=== PATIENT | male | born 1995 | race African-American/Black ===

== ENCOUNTER 2016-06-27 14:33 | Observation (INO) | payer MEDICAID, SELFPAY ==
[2016-06-27] VITALS (10 sets, daily range): BP systolic 127–143; BP diastolic 74–100; PULSE 84–102; RESP 15–20; TEMP 36.6–37.5; O2SAT 95–98; BMI 41.2; BMI 39.8
[2016-06-27 14:53] LABS: Bedside Glucose > 500 mg/dL (70-110)
[2016-06-27] MEDS: 0.9% Normal Saline 1,000 ML 1000 ML IV ×2 (15:23→16:45)
[2016-06-27 15:25] LABS: Absolute Lymphocyte Count 1.25 X10^3/ul (0.83-4.51); Absolute Neutrophil Count 5.8 X10^3/uL (2.0-7.7); Basophil# 0.02 X10^3/uL; Basophil% 0.3 % (0-1); Eosinophil# 0.02 X10^3/uL; Eosinophils% 0.3 % (0-5); Hematocrit 48.7 % (40-54); Hemoglobin 14.8 g/dl (13.0-16.5); Lymphocyte # 1.25 X10^3/ul (4.0); Lymphocyte % 16.8 % (19-41); Mean Corp Hgb Conc 30.4 g/gl (32-36); Mean Corpuscular Hgb 27.8 pg (27.0-32.0); Mean Corpuscular Volume 91.5 fL (80-94); Mean Platelet Vol. 11.2 fl (6.2-12.0); Monocyte# 0.28 X10^3/uL; Monocyte% 3.8 % (0-10); Neutrophil # 5.83 X10^3/uL (2.7-7.7); Neutrophil % 78.4 % (47-70); Platelet Count 234 K/mm3 (150-450); RBC Distribution Width SD 46.4 fl (35.1-43.9); Red Blood Count 5.32 M/mm3 (4.6-6.2); White Blood Count 7.4 K/mm3 (4.4-11.0)
[2016-06-27 15:26] LABS: POSITIVE COUNT NO; POSITIVE DIFFERENTIAL NO; POSITIVE MORPHOLOGY NO
--- NOTE | 2016-06-27 15:42 | ED.RN ---
DR MIRANDA NOTIFIED OF K+ AND GLUCOSE RESULTS
[2016-06-27 15:44] LABS: Anion Gap 15 (5-15); BUN 29 mg/dL (7-18); BUN/Creat Ratio 18.2 RATIO (10-20); Calcium,Total 9.2 mg/dL (8.5-10.1); Chloride 82 mmol/L (98-107); Creatinine, Serum 1.59 mg/dL (0.70-1.30); EST Glomerular Filtration Rate 57 mL/min (>60); Est Glom Filt Rate - Afr Amer 70 mL/min (>60); Estimated Creatinine Clearance 74.61 ml/min; Glucose 1094 mg/dL (70-110); Sodium Level 118 mmol/L (136-145)
[2016-06-27 15:52] LABS: Hemoglobin A1c 15.1 % (4.2-6.3)
--- NOTE | 2016-06-27 16:11 | HP.PCM_ITS ---
History of Present Illness Date of Admission: 06/27/16 Chief Complaint: Abdominal discomfort, not feeling well The patient is a 21 year old -[place] male came into the ED complaining of not feeling well, abdominal discomfort. States that this started about 2-3 days ago, he cannot really specify what kind of abdominal discomfort he has, and what was not right with him. Just says not feeling right and slightly lightheaded. Patient reports being very thirsty, frequent urinations/polyuria. On my examining the ED, patient is sitting in bed, comfortable, does not appear to be distressed. Complains of mild abdominal discomfort, but no nausea/ vomiting/diarrhea. Denies fever/chills. No shortness of breath or coughing now. No /neuro complaints. Past medical history. Morbid obesity. Asthma. Hypertension. Keloid scarring after piercing of his ears, was removed on the right ear, planning to remove on the left. Social history. Lives with his mother, works at [employer], active. He is to smoke a few months, quit about 3 years ago. Denies use of alcohol street drugs. Family history. Mother: Diabetes mellitus, hypertension, CAD. Grandfather: CAD. Past Medical History Past Medical History (Chronic Problems): Chronic Problems Keloid (Chronic) L91.0 4 cm recurrent keloid right earlobe Late effect of certain other external causes (Chronic) T75.89xS late effect open wound bilateral earlobes Allergies No Known Allergies Allergy (Verified 08/06/13 15:15) Home Medications: Ambulatory Orders Medication Instructions Recorded Albuterol IH (Surg/Vent Pts) 2 puff INHALATION Q4H PRN PRN 03/18/16 [Proair Hfa] Lisinopril [Zestril] 20 mg PO DAILY 03/18/16 Metformin(XR) [Glucophage Xr] 1,000 mg PO BID 03/18/16 PredniSONE 60 mg PO DAILY #15 tablet 06/25/16 Smoking Status: Never smoker . - As above Review of Systems Constitutional: Denies: Anorexia, Chills, Fever, Malaise, Weakness, Weight Change, Fatigue Eyes: Denies: Vision Change HEENT: Denies: Visual Changes Cardiovascular: Reports: Light Headedness. Denies: Chest Pain, Claudication, Heaviness, Palpitations, Syncope Respiratory: Denies: Cough, Shortness of Breath, Sputum production, Wheezing Gastrointestinal: Reports: Abdominal Pain. Denies: Constipation, Diarrhea, Dyspepsia, Hematochezia, Nausea, Melena, Vomiting Genitourinary: Reports: Frequency. Denies: Dysuria, Hematuria, Hesitancy, Incontinence, Nocturia, Retention, Urgency Musculoskeletal: Denies: Hand Pain, Joint Pain, Leg Pain, Muscle pain Skin: Reports: Dryness. Denies: Jaundice, Lesions, Rash Neurological: Reports: Balance problems - Feeling unsteady. Denies: Blurred vision, Double vision, Change in Speech, Slurred speech, Confusion, Difficulty swallowing, Focal weakness, Headaches, Incoordination, Numbness, Tingling, Tremor, Seizures Psychiatric: Denies: Anxiety, Depression, Suicidal Ideations Endocrine: Denies: Change in Body Habitus Hematologic/ Lymphatic: Denies: Adenopathy, Anemia, Hx of blood clot VTE Information - Inpt Only VTE Present on Admission: No Objective: General: Patient is comfortable, not in acute distress. Awake, alert, oriented ?3. HEENT: Atraumatic, Normocephalic. Clear conjunctiva. Oral mucosa is dry. Neck: No nodules noted, no asymmetry. PERRLA. Skin: Clean, dry. No visible rashes. On the left there is approximately 5 x 5 cm keloid scar. Well-healed incision on the right. Lungs: Good air entry, somewhat diminished at bases bilaterally, no wheezing. CVS: S1-S2 present, no murmurs appreciated, regular rate, good radial pulses. Capillary refill is less than 3 Seconds. Abdomen: Soft, nontender, nondistended, bowel sounds present. No CVA tenderness. Extremities: No clubbing, No cyanosis. No visible deformities. No lower extremity edema. Psych/Mental Status: Normal Affect, Appropriate Neuro: No focal neurological findings. - Physical Exam Vital Signs Temp Pulse Resp BP Pulse Ox 36.6 C 93 16 143/89 96 06/27/16 14:34 06/27/16 14:34 06/27/16 14:34 06/27/16 14:34 06/27/16 14:34 Oxygen Delivery Method Room Air Weight: 130.3 kg Body Mass Index (BMI) 41.2 Laboratory Tests Past 24 Hrs 06/27/16 06/27/16 06/27/16 15:15 15:15 15:15 WBC 7.4 RBC 5.32 Hgb 14.8 Hct 48.7 MCV 91.5 MCH 27.8 MCHC 30.4 L RDW 14.0 RDW Differential 46.4 H Plt Count 234 MPV 11.2 Immature Gran % (Auto) 0.400 Neut % (Auto) 78.4 H Lymph % (Auto) 16.8 L Russell % (Auto) 3.8 Eos % (Auto) 0.3 Baso % (Auto) 0.3 Absolute Neuts (auto) 5.8 Absolute Lymphs (auto) 1.25 Total Counted Not Reportable Sodium 118 L* Potassium 6.0 H* Chloride 82 L Carbon Dioxide 21.0 Anion Gap 15 BUN 29 H Creatinine 1.59 H Estim Creat Clear Calc 74.61 Est GFR (MDRD) Af Amer 70 Est GFR (MDRD) Non-Af 57 L BUN/Creatinine Ratio 18.2 Glucose 1094 H* Hemoglobin A1c 15.1 H Calcium 9.2 POC Glucose 06/27/16 14:43 POC Glucose > 500 H* Assessment/Plan * HHS. Blood glucose level on arrival = 1094. Bicarb 21.0. Dehydration. Hyponatremia. Patient is comfortable, has no complaints, no signs of encephalopathy. Likely trigger for patient's HHS: He was recently started on oral steroids for asthma exacerbation. Will start on HHS treatment per protocol with insulin drip, aggressive hydration, monitoring electrolytes. * Patient reports history of diabetes mellitus type 2, reports that about 3 months ago he visited his PCP and blood work at that time was normal. She was on metformin only. Considering that today his hemoglobin A1c is 15.1, his diabetes is not controlled at all, oral hypoglycemic agents will not be sufficient upon discharge, for now we will treat HHS as above with insulin drip , upon discharge she will need sent home on insulin regimen. Considering coexisting obesity and hypertension, suspect metabolic syndrome. May benefit from follow-up with women's swim coach as outpatient. * Hyponatremia. Sodium level on arrival 118, corrected sodium level is 136. Treatment of HHS as above. * Hyperkalemia. Sample is reported to be hemolyzed. We will recheck. * Hypertension, not at goal. Will resume patient's home medications- lisinopril. Will monitor, adjust as needed. * RAMSEY. Creatinine on arrival 1.59. Baseline creatinine = 0.91. Likely prerenal, due to significant dehydration. Aggressive hydration, expect improvement. * DVT prophylaxis was Lovenox. Dragon Dictation.
[2016-06-27 16:39] LABS: Bedside Glucose > 500 mg/dL (70-110)
--- NOTE | 2016-06-27 17:46 | EDS_ITS ---
DATE OF SERVICE: 06/27/2016 CHIEF COMPLAINT: Abdominal pain and polydipsia. HISTORY OF PRESENT ILLNESS: This is a 21-year-old male, who has a history of type 2 diabetes per the mother, who presents today with abdominal pain, cotton mouth, polydipsia. The patient states that his symptoms have been ongoing for the past 3 days. The patient states that he feels that his balance is off at times during this timeframe as well. The patient describes a generalized abdominal pain. No focal areas of concern per the patient. Denies any fevers. Admits to blurry vision at times. He admits to polyuria and polydipsia. Of note, the patient tells me that he is not taking his metformin. He states that he just did not want to take it earlier and when he told his mother that, she was concerned and brought him in to the Emergency Department. Upon arrival to the Emergency Department, his blood glucose fingerstick was over 500. PAST MEDICAL HISTORY: As above. PHYSICAL EXAMINATION: VITAL SIGNS: Stable and afebrile. GENERAL: This is a well-developed male, in no acute distress. HEENT: Head is normocephalic and atraumatic. NECK: Supple without adenopathy. ENT exam reveals slightly dry mucous membranes. CARDIOVASCULAR: Regular rate and rhythm. LUNGS: Clear to auscultation. ABDOMEN: Soft, nontender, and nondistended without rebound or guarding. EXTREMITIES: Nontender without edema. SKIN: Reveals a keloid on the patient's left ear, which has been there since he was 13. NEUROLOGIC: Alert and oriented x3. Exhibits normal strength and sensation of upper and lower extremities. Physical exam otherwise unremarkable. EMERGENCY DEPARTMENT COURSE: The patient was given IV fluids as well as insulin 25 units subQ. CBC is within normal limits. BMP revealed a sodium of 118; potassium of 6, which appears to be hemolyzed; glucose of 1094; and a creatinine of 1.59. The patient's creatinine is new and not chronic. In terms of the patient's hyponatremia, given his elevated glucose levels, I believe this is likely pseudohyponatremia. His A1c is 15.1. On reevaluation at 1600, the patient is in no distress. Findings were discussed with him and the need for admission. He voiced understanding and in agreement to this. I spoke with Dr. Strunets, who will admit the patient. He recommended that we start an insulin drip on the patient at 0.05 units/kg per hour. This was discussed with the patient as well. He voiced understanding and agreement. He has remained stable here in the Emergency Department and will be admitted for further care. The patient has no anion gap and I do not believe this represents DKA. Furthermore, the patient does not fit in the NS picture. I suspect this is likely uncontrolled diabetes to the point where he will probably need to be on insulin at discharge. DIAGNOSIS: Hyperglycemia. MD Renea Archuleta C: Carlos Castro MD T: NTS JOB: [id number]
[2016-06-27 17:47] LABS: Anion Gap 14 (5-15); BUN 28 mg/dL (7-18); BUN/Creat Ratio 21.2 RATIO (10-20); Chloride 94 mmol/L (98-107); Creatinine, Serum 1.32 mg/dL (0.70-1.30); EST Glomerular Filtration Rate 71 mL/min (>60); Est Glom Filt Rate - Afr Amer 86 mL/min (>60); Estimated Creatinine Clearance 89.87 ml/min; Potassium 4.9 mmol/L (3.5-5.1); Sodium Level 127 mmol/L (136-145)
--- NOTE | 2016-06-27 17:47 | EKG12_ITS ---
Test Reason : ADMISSION Blood Pressure : / mmHG Vent. Rate : 105 BPM Atrial Rate : 105 BPM P-R Int : 136 ms QRS Dur : 106 ms QT Int : 336 ms P-R-T Axes : 052 038 -53 degrees QTc Int : [address] \T\ T wave abnormality, consider lateral ischemia Abnormal ECG No previous ECGs available Confirmed by STEFF SOARES, KRIS ([id number]), photo editor AALIYAH LUNDY ([id number]) on 06/29/2016 3:43:03 PM Referred By: RICCI Confirmed By:KRIS ARTIS MD
[2016-06-27 17:52] LABS: Glucose 708 mg/dL (70-110)
[2016-06-27] MEDS: 0.9% Normal Saline 1,000 ML 250 ML IV ×2 (18:38→22:41)
[2016-06-27 19:22] LABS: Bedside Glucose 380 mg/dL (70-110)
[2016-06-27 20:15] LABS: Bedside Glucose 357 mg/dL (70-110)
[2016-06-27] MEDS: Albuterol 2.5 MG/3 ML VIAL.NEB. INHALATION (21:00)
[2016-06-27 21:16] LABS: Bedside Glucose 340 mg/dL (70-110)
[2016-06-27 21:37] LABS: Anion Gap 9 (5-15); BUN 24 mg/dL (7-18); BUN/Creat Ratio 20.5 RATIO (10-20); Calcium,Total 9.3 mg/dL (8.5-10.1); Chloride 102 mmol/L (98-107); Creatinine, Serum 1.17 mg/dL (0.70-1.30); EST Glomerular Filtration Rate 82 mL/min (>60); Est Glom Filt Rate - Afr Amer 99 mL/min (>60); Estimated Creatinine Clearance 104.58 ml/min; Glucose 345 mg/dL (70-110); Sodium Level 135 mmol/L (136-145)
[2016-06-27 23:23] LABS: Bedside Glucose 290 mg/dL (70-110)
[2016-06-28] VITALS (12 sets, daily range): BP systolic 133–168; BP diastolic 62–106; PULSE 73–92; RESP 14–20; TEMP 36.8–37.2; O2SAT 92–99
[2016-06-28] MEDS: Dext 5%-0.45% NS 1,000 ML 150 ML IV (00:15)
[2016-06-28 00:28] LABS: Bedside Glucose 289 mg/dL (70-110)
[2016-06-28 02:41] LABS: Bedside Glucose 322 mg/dL (70-110)
[2016-06-28 05:31] LABS: Bedside Glucose 299 mg/dL (70-110)
[2016-06-28 05:31] LABS: Bedside Glucose 312 mg/dL (70-110)
[2016-06-28 05:31] LABS: Bedside Glucose 303 mg/dL (70-110)
[2016-06-28 06:00] LABS: Anion Gap 11 (5-15); BUN 19 mg/dL (7-18); BUN/Creat Ratio 17.1 RATIO (10-20); Calcium,Total 9.1 mg/dL (8.5-10.1); Chloride 100 mmol/L (98-107); Creatinine, Serum 1.11 mg/dL (0.70-1.30); EST Glomerular Filtration Rate 87 mL/min (>60); Est Glom Filt Rate - Afr Amer 105 mL/min (>60); Estimated Creatinine Clearance 110.24 ml/min; Glucose 325 mg/dL (70-110); Magnesium 2.1 mg/dL (1.8-2.4); Potassium 3.5 mmol/L (3.5-5.1); Sodium Level 138 mmol/L (136-145)
[2016-06-28 06:16] LABS: Bedside Glucose 305 mg/dL (70-110)
[2016-06-28 06:39] LABS: Hematocrit 42.4 % (40-54); Hemoglobin 13.6 g/dl (13.0-16.5); Mean Corp Hgb Conc 32.1 g/gl (32-36); Mean Corpuscular Hgb 27.4 pg (27.0-32.0); Mean Corpuscular Volume 85.5 fL (80-94); Mean Platelet Vol. 10.6 fl (6.2-12.0); Platelet Count 222 K/mm3 (150-450); RBC Distribution Width CV 13.5 % (11.6-14.6); RBC Distribution Width SD 41.5 fl (35.1-43.9); Red Blood Count 4.96 M/mm3 (4.6-6.2); White Blood Count 7.5 K/mm3 (4.4-11.0)
[2016-06-28 06:49] LABS: Scan Indicated on CBC? Y/N NO
[2016-06-28 07:37] LABS: Bedside Glucose 328 mg/dL (70-110)
[2016-06-28 08:23] LABS: Bedside Glucose 277 mg/dL (70-110)
[2016-06-28 09:07] LABS: Bedside Glucose 228 mg/dL (70-110)
[2016-06-28] MEDS: Enoxaparin 40 MG/0.4 ML Syringe SC (10:25)
[2016-06-28 10:27] LABS: Bedside Glucose 264 mg/dL (70-110)
[2016-06-28] MEDS: Ondansetron 8 MG Tablet PO (10:27)
--- NOTE | 2016-06-28 13:20 | PCM.DC ---
Discharge Diet: 2200 Calorie Control Diet Discharge Activity: Return to Normal Activity Weight Bearing Status: Full weight bearing Allergies/Adverse Reactions: Allergies No Known Allergies Allergy (Verified 06/27/16 18:02) Medications to take at Discharge Albuterol IH (Surg/Vent Pts) [Proair Hfa] 2 puff INHALATION Q4H PRN PRN 03/18/16 Lisinopril [Zestril] 20 mg PO DAILY 03/18/16 Metformin(XR) [Glucophage Xr] 1,000 mg PO BID 03/18/16 Budesonide/Formoterol 160/4.5 [Symbicort 160/4.5 Mcg Inhaler (SP)] 2 puff INHALATION BID #1 inhaler 06/28/16 Insulin Detemir [Levemir FlexPen] 30 units SC DAILY #5 insuln.pen 06/28/16 The following prescriptions were given: Insulin Detemir [Levemir FlexPen] 30 units SC DAILY #5 insuln.pen Budesonide/Formoterol 160/4.5 [Symbicort 160/4.5 Mcg Inhaler (SP)] 2 puff INHALATION BID #1 inhaler Primary Care Physician: Carlos Castro MD [Primary Care Provider] - Please follow up with your Primary Care Physician in: in one week
[2016-06-28] MEDS: Albuterol 2.5 MG/3 ML VIAL.NEB. INHALATION (14:31)
--- NOTE | 2016-07-18 15:38 | PCM.DC.SUM ---
Discharge Date and Diagnosis Date of Admission: 06/27/16 Date of Discharge: 06/28/16 - Primary Discharge Diagnosis #1 hyperosmolar nonketotic hyperglycemia #2 type 2 diabetes-under poor control #3 hyponatremia #4 hyperkalemia #5 hypertension #6 noncompliance with medical regimen - Secondary Discharge Diagnosis Chronic Problems Keloid (Chronic) L91.0 4 cm recurrent keloid right earlobe Late effect of certain other external causes (Chronic) T75.89xS late effect open wound bilateral earlobes Hospital Course and Treatment Operations: None Procedures: None Summary of Care Provided: The patient is a 21 year old M seen in the emergency room at [facility] with a feeling of malaise, patient has type 2 diabetes and is currently taking metformin but there is question whether he is compliant with physicians visits. Lab performed in the emergency room revealed a low sodium at 118, potassium was 6, glucose was 1094. Patient's hemoglobin A1c was 15.1 indicating poor control of his type 2 diabetes. Patient BUN was elevated at 29 and creatinine was 1.59. Patient's anion gap however was 15 indicating a hyperosmolar nonketotic hyperglycemia. Patient was admitted to ICU, placed on insulin drip and given IV fluids, electrolytes were monitored and patient had no complications during his admission. On 06/28/16, patient was seen and examined by myself and felt to be in stable condition for discharge home., Discharge Diet: 2200 Calorie Control Diet Discharge Activity: Return to Normal Activity Weight Bearing Status: Full weight bearing Home Medications: Medications to take at Discharge Albuterol IH (Surg/Vent Pts) [Proair Hfa] 2 puff INHALATION Q4H PRN PRN 03/18/16 Lisinopril [Zestril] 20 mg PO DAILY 03/18/16 Metformin(XR) [Glucophage Xr] 1,000 mg PO BID 03/18/16 Budesonide/Formoterol 160/4.5 [Symbicort 160/4.5 Mcg Inhaler (SP)] 2 puff INHALATION BID #1 inhaler 06/28/16 Insulin Detemir [Levemir FlexPen] 30 units SC DAILY #5 insuln.pen 06/28/16 Following Prescrptions Were Given to Patient: Insulin Detemir [Levemir FlexPen] 30 units SC DAILY #5 insuln.pen Budesonide/Formoterol 160/4.5 [Symbicort 160/4.5 Mcg Inhaler (SP)] 2 puff INHALATION BID #1 inhaler Primary Care Physician: Carlos Castro MD [Primary Care Provider] - Please follow up with your Primary Care Physician in: in one week Disposition: Home Minutes spent on discharge:: 25 Patient Condition:: Stable Meaningful Use Info Meaningful Use Diagnoses (Choose all that apply): None applicable
== END 2016-06-28 14:51 | disposition home or self-care (01) | DRG 420 ==
LOC: ED 08-11 12:20 → ICU 08-11 12:20
PROVIDERS: Admitting Provider Internal Medicine; Emergency Provider Student in an Organized Health Care Education/Training Program; Family Provider Family Medicine; PCP Family Medicine; Visit Provider Internal Medicine
DX: E11.00 Type 2 diabetes mellitus with hyperosmolarity without nonketotic hyperglycemic-hyperosmolar coma (NKHHC) (principal); E87.1 Hypo-osmolality and hyponatremia; N17.9 Acute kidney failure, unspecified; E66.01 Morbid (severe) obesity due to excess calories; E11.65 Type 2 diabetes mellitus with hyperglycemia; I10 Essential (primary) hypertension; E87.5 Hyperkalemia; L91.0 Hypertrophic scar; S01.33 Puncture wound without foreign body of ear; X58.XXXS Exposure to other specified factors, sequela; J06.9 Acute upper respiratory infection, unspecified; J45.901 Unspecified asthma with (acute) exacerbation; Z68.41 Body mass index [BMI] 40.0-44.9, adult; Z83.3 Family history of diabetes mellitus; Z91.19 Patient's noncompliance with other medical treatment and regimen; Z79.84 Long term (current) use of oral hypoglycemic drugs; Z87.891 Personal history of nicotine dependence; Z79.899 Other long term (current) drug therapy
CPT/HCPCS: 71020; 80048; 82962; 83036; 83735; 85025; 85027; 93005; 94640; 97802; 97803; 99218; 99283; 99285; J7030; A4216; G0378; J7799

== ENCOUNTER → 2017-10-03 11:07 | Outpatient (CLI) | payer OTHER, SELFPAY ==
[2017-10-03 12:34] LABS: Microalbumin,Random Urine 29.2 mg/L (NO RANGE EST.); Microalbumin:Creatinine Ratio 79.1 mg/g CRE (<30 mg/g CRE)
[2017-10-03 12:56] LABS: Hemoglobin A1c 13.7 % (4.2-6.3)
[2017-10-03 13:23] LABS: AST(SGOT) 22 U/L (15-37); Alanine Aminotransfer ALT/SGPT 41 U/L (16-61); Albumin, Serum 3.6 g/dL (3.2-5.0); Alkaline Phosphatase 98 U/L (45-117); Anion Gap 12 (5-15); BUN 16 mg/dL (7-18); BUN/Creat Ratio 18.2 RATIO (10-20); Bilirubin, Direct 0.12 mg/dL (0.00-0.30); Calcium,Total 9.1 mg/dL (8.5-10.1); Chloride 100 mmol/L (98-107); Cholesterol 200 mg/dL (200); Creatinine, Serum 0.88 mg/dL (0.70-1.30); EST Glomerular Filtration Rate 113 mL/min (>60); Est Glom Filt Rate - Afr Amer 137 mL/min (>60); Globulin 4.1 g/dL (2.2-4.2); Glucose 348 mg/dL (74-106); High Density Lipoprotein 24 mg/dL; Potassium 4.1 mmol/L (3.5-5.1); Protein, Total 7.7 g/dL (6.4-8.2); Sodium Level 137 mmol/L (136-145); Triglycerides 989 mg/dL
== END ==
PROVIDERS: Family Provider Family Medicine; PCP Family Medicine; Visit Provider Family Medicine
DX: E11.9 Type 2 diabetes mellitus without complications (principal)
CPT/HCPCS: 36415; 80048; 80061; 80076; 82043; 82570; 83036

== ENCOUNTER → 2020-07-25 08:16 | Outpatient (CLI) | payer MEDICAID, SELFPAY ==
[2016-06-27 17:53] VITALS: BMI 39.8
[2020-07-25 10:47] LABS: Microalbumin,Random Urine 29.8 mg/L (NO RANGE EST.); Microalbumin:Creatinine Ratio 37.9 mg/g CRE (<30 mg/g CRE)
[2020-07-25 11:13] LABS: AST(SGOT) 11 U/L (15-37); Alanine Aminotransfer ALT/SGPT 30 U/L (16-61); Albumin, Serum 4.1 g/dL (3.2-5.0); Alkaline Phosphatase 73 U/L (45-117); Anion Gap 4 (5-15); BUN 18 mg/dL (7-18); BUN/Creat Ratio 21.1 RATIO (10-20); Bilirubin, Direct 0.14 mg/dL (0.00-0.30); Chloride 101 mmol/L (98-107); Cholesterol 243 mg/dL (200); Creatinine, Serum 0.85 mg/dL (0.70-1.30); EST Glomerular Filtration Rate 114 mL/min (>60); Est Glom Filt Rate - Afr Amer 138 mL/min (>60); Globulin 4.2 g/dL (2.2-4.2); Glucose 240 mg/dL (74-106); High Density Lipoprotein 39 mg/dL; Potassium 4.3 mmol/L (3.5-5.1); Protein, Total 8.3 g/dL (6.4-8.2); Sodium Level 135 mmol/L (136-145); Triglycerides 511 mg/dL
== END ==
PROVIDERS: PCP Family Medicine; Referring Provider Family Medicine; Visit Provider Family Medicine
DX: E11.9 Type 2 diabetes mellitus without complications (principal)
CPT/HCPCS: 36415; 80048; 80061; 80076; 82043; 82570

== ENCOUNTER → 2020-12-02 | Outpatient (CLI) | payer MEDICAID, SELFPAY | END | disposition home or self-care (01) | LOC: LABSPEC 12:19 | PROVIDERS: PCP Family Medicine; Referring Provider Physician Assistant Surgical; Visit Provider Physician Assistant Surgical | DX: Z20.822 Contact with and (suspected) exposure to COVID-19 (principal) | CPT/HCPCS: 87635; U0005; U0003 ==

== ENCOUNTER → 2021-07-31 | Outpatient (CLI) | payer MEDICAID, SELFPAY ==
[2021-07-31 15:29] LABS: Anion Gap 5 (5-15); BUN 24 mg/dL (7-18); BUN/Creat Ratio 24.7 RATIO (10-20); Calcium,Total 9.6 mg/dL (8.5-10.1); Chloride 106 mmol/L (98-107); Cholesterol 156 mg/dL (200); Creatinine, Serum 0.97 mg/dL (0.70-1.30); EST Glomerular Filtration Rate 97 mL/min (>60); Est Glom Filt Rate - Afr Amer 118 mL/min (>60); Glucose 140 mg/dL (74-106); High Density Lipoprotein 39 mg/dL; Potassium 4.4 mmol/L (3.5-5.1); Sodium Level 138 mmol/L (136-145); Triglycerides 118 mg/dL; Very Low Density Lipoprotein 24 mg/dL (5-40)
== END | disposition home or self-care (01) ==
PROVIDERS: PCP Family Medicine; Referring Provider Family Medicine; Visit Provider Family Medicine
DX: E11.8 Type 2 diabetes mellitus with unspecified complications (principal)
CPT/HCPCS: 36415; 80048; 80061

== ENCOUNTER → 2021-12-02 | Outpatient (CLI) | payer MEDICAID, SELFPAY ==
--- NOTE | 2021-12-02 11:23 | RAD_ITS ---
STUDY: X-RAY - LEFT SHOULDER REASON FOR EXAM: Male, 26 years old. PAIN TECHNIQUE: 3 view(s) of the shoulder. COMPARISON: None. FINDINGS: Normal glenohumeral articulation. Normal acromioclavicular joint. Normal acromion. Normal humeral head and visualized proximal humerus. The soft tissue structures are unremarkable. Normal visualized pulmonary apex. RAD/Shoulder min 2 Views IMPRESSION: Normal x-ray examination of the shoulder. Electronically Signed: Ovi Conte MD at 16:35 EDT ,
[2021-12-02 15:42] LABS: Anion Gap 6 (5-15); BUN 18 mg/dL (7-18); BUN/Creat Ratio 20.7 RATIO (10-20); Calcium,Total 9.6 mg/dL (8.5-10.1); Chloride 106 mmol/L (98-107); Cholesterol 159 mg/dL (200); Creatinine, Serum 0.87 mg/dL (0.70-1.30); EST Glomerular Filtration Rate 110 mL/min (>60); Est Glom Filt Rate - Afr Amer 133 mL/min (>60); Glucose 125 mg/dL (74-106); High Density Lipoprotein 42 mg/dL; Potassium 4.7 mmol/L (3.5-5.1); Sodium Level 138 mmol/L (136-145); Triglycerides 146 mg/dL; Very Low Density Lipoprotein 29 mg/dL (5-40)
== END | disposition home or self-care (01) ==
PROVIDERS: PCP Family Medicine; Referring Provider Family Medicine; Visit Provider Family Medicine
DX: M25.512 Pain in left shoulder (principal); E11.9 Type 2 diabetes mellitus without complications
CPT/HCPCS: 36415; 73030; 80048; 80061

== ENCOUNTER → 2021-12-22 | Outpatient (CLI) | payer MEDICAID, SELFPAY ==
--- NOTE | 2021-12-22 08:48 | ECHOD_ITS ---
Reason For Study: MURMUR Procedure This was a 2D Doppler, Color Flow transthoracic echocardiogram. The study was technically difficult. Exam performed in department. Left Ventricle Moderately dilated left ventricle. Moderately severe global left ventricular systolic dysfunction. The estimated ejection fraction is 30 %. The global longitudinal strain = -12.4% (abnormal). No evidence for diastolic dysfunction. Right Ventricle Normal RV size. Normal systolic function. Atria The left atrium is mildly enlarged. Normal right atrium. Hypermobile atrial septum. Bubble contrast study negative for right to left interatrial shunt. Mitral Valve There is no mitral annular calcification. Normal mitral valve. Trivial mitral valve insufficiency. Tricuspid Valve Normal tricuspid valve. Trivial tricuspid valve insufficiency. Unable to estimate RV systolic pressure due to insufficient tricuspid regurgitant envelope. Aortic Valve Trisinus/trileaflet aortic valve. Normal aortic valve. Pulmonic Valve The pulmonic valve is not well visualized. Great Vessels Normal sized aortic root. Pericardium/Pleural No pericardial effusion. Medication Performed a rapid injection of agitated mix of 9 cc saline and 1cc air to assess for atrial septal defect. MMode/2D Measurements & Calculations LVIDd: 6.7 cm IVSd: 0.96 cm Ao root diam: 3.5 cm LVIDs: 5.4 cm LVPWd: 1.0 cm FS: 20.7 % LAV(MOD-sp4): 60.4 ml LVAd ap4: 44.6 cm2 SV(MOD-sp4): 52.7 ml LVLd ap4: 8.2 cm EDV(MOD-sp4): 201.1 ml EDV(sp4-el): 205.7 ml LVAs ap4: 35.9 cm2 LVLs ap4: 7.5 cm ESV(MOD-sp4): 148.4 ml ESV(sp4-el): 146.3 ml EF(MOD-sp4): 26.2 % EF(sp4-el): 28.9 % SV(sp4-el): 59.4 ml LA A4 area: 21.9 cm2 LA dimension(2D): 4.0 cm RA A4 area: 18.8 cm2 Time Measurements MV dec time: 0.14 sec Doppler Measurements & Calculations MV E max leonidas: 79.3 cm/sec Lat Peak E' Leonidas: 7.3 cm/sec Med Peak E' Leonidas: 9.4 cm/sec MV A max leonidas: 56.5 cm/sec E/E' lat: 10.9 E/E' med: 8.4 MV E/A: 1.4 MV V2 max: 97.7 cm/sec MV dec slope: 642.9 cm/sec2 Ao V2 max: 109.9 cm/sec MV max P.8 mmHg Ao max P.8 mmHg MV V2 mean: 49.0 cm/sec Ao V2 mean: 71.8 cm/sec MV mean P.2 mmHg Ao mean P.5 mmHg MV V2 VTI: 20.2 cm Ao V2 VTI: 23.2 cm LV V1 max: 110.7 cm/sec PA V2 max: 118.2 cm/sec LV V1 max P.9 mmHg PA V2 mean: 74.7 cm/sec LV V1 mean P.7 mmHg LV V1 mean: 77.1 cm/sec LV V1 VTI: 22.0 cm ECHO/Echo Complete Interpretation Summary The study was technically difficult. Moderately dilated left ventricle. Moderately severe global left ventricular systolic dysfunction. The estimated ejection fraction is 30 %. The global longitudinal strain = -12.4% (abnormal). The left atrium is mildly enlarged. Hypermobile atrial septum. Trivial mitral valve insufficiency. Trivial tricuspid valve insufficiency. Unable to estimate RV systolic pressure due to insufficient tricuspid regurgita nt envelope. No evidence for diastolic dysfunction. Bubble contrast study negative for right to left interatrial shunt. Ordering Physician: Carlos Castro Referring Physician: Carlos Castro Performed By: Mona Guillen RCS
== END | disposition home or self-care (01) ==
LOC: CVS 08:46
PROVIDERS: PCP Family Medicine; Referring Provider Family Medicine; Visit Provider Family Medicine
DX: R01.1 Cardiac murmur, unspecified (principal)
CPT/HCPCS: 93306; A4216

== ENCOUNTER → 2022-01-01 | Outpatient (CLI) | payer MEDICAID, SELFPAY ==
--- NOTE | 2022-01-01 17:06 | RAD_ITS ---
STUDY: X-RAY CHEST REASON FOR EXAM: Male, 26 years old. CHEST PAIN cardiomyopathy TECHNIQUE: XR Chest 2 Views COMPARISON: 06/25/2016 FINDINGS: There is no demonstrated pleural abnormality. Normal size heart. Normal mediastinum and jeremy. Normal visualized pulmonary arteries. Normal visualized aortic arch and descending thoracic aorta. Normal visualized thoracic spine. Normal visualized ribs, clavicles, and shoulders. There is no demonstrated abnormality of the visualized soft tissue structures of the upper abdomen. RAD/Chest PA and Lateral IMPRESSION: There are no acute findings. Electronically Signed: Paul Bradshaw MD at 17:23 EDT ,
[2022-01-01 17:31] LABS: Absolute Neutrophil Count 4.9 X10^3/uL (2.0-7.7); Basophil# 0.03 X10^3/uL; Basophil% 0.4 % (0-1); Eosinophil# 0.22 X10^3/uL; Eosinophils% 2.7 % (0-5); Hematocrit 47.3 % (40-54); Hemoglobin 15.4 g/dL (13.0-16.5); Lymphocyte % 25.7 % (19-41); Mean Corp Hgb Conc 32.6 g/dL (32-36); Mean Corpuscular Hgb 28.2 pg (27.0-32.0); Mean Corpuscular Volume 86.5 fL (80-94); Mean Platelet Vol. 9.7 fl (6.2-12.0); Monocyte# 0.88 X10^3/uL; Monocyte% 10.8 % (0-10); NRBC Flagged by Analyzer 0 % (0-5); Neutrophil # 4.92 X10^3/uL (2.7-7.7); Neutrophil % 60.2 % (47-70); Platelet Count 231 K/mm3 (150-450); RBC Distribution Width CV 13.1 % (11.6-14.6); Red Blood Count 5.47 M/mm3 (4.6-6.2); White Blood Count 8.2 K/mm3 (4.4-11.0)
[2022-01-01 17:41] LABS: International Normalized Ratio 1.1; Prothrombin Time (Protime)PT. 13.8 SECONDS (11.7-14.9)
[2022-01-01 17:42] LABS: Partial Thromboplast Time 31.6 Seconds (24.1-36.2)
[2022-01-01 18:03] LABS: Anion Gap 6 (5-15); BUN 21 mg/dL (7-18); BUN/Creat Ratio 23.3 RATIO (10-20); Calcium,Total 9.6 mg/dL (8.5-10.1); Chloride 104 mmol/L (98-107); EST Glomerular Filtration Rate 106 mL/min (>60); Est Glom Filt Rate - Afr Amer 128 mL/min (>60); Glucose 100 mg/dL (74-106); Potassium 4.3 mmol/L (3.5-5.1); Sodium Level 136 mmol/L (136-145)
== END | disposition home or self-care (01) ==
PROVIDERS: PCP Family Medicine; Referring Provider Internal Medicine Cardiovascular Disease; Visit Provider Internal Medicine Cardiovascular Disease
DX: I42.9 Cardiomyopathy, unspecified (principal); E11.9 Type 2 diabetes mellitus without complications; I10 Essential (primary) hypertension; R01.1 Cardiac murmur, unspecified; R07.9 Chest pain, unspecified
CPT/HCPCS: 36415; 71046; 80048; 85025; 85610; 85730

== ENCOUNTER 2022-01-19 07:10 | Day surgery (SDC) | payer MEDICAID, SELFPAY ==
--- NOTE | 2022-01-18 10:20 | HP.PCM_ITS ---
History and Physical Date of Admission: 01/19/22 [facility] [address] [place] [address] Name:CARLEY HORN : 1995 Provider: Dr. Carlos Turner MD Age/Sex:? 26/M HPI HPI History of Present Illness Surgical H&P: Yes Details: This is a 26-year-old -[place] male who presents for outpatient cardiovascular consultation secondary to concerns of a cardiac murmur and an abnormal transthoracic echocardiogram compatible with an underlying cardiomyopathy.? The patient states to the best of his knowledge she has no cardiovascular history.? He states he was undergoing evaluation by his PCP and was thought to have a cardiac murmur.? He was referred for further evaluation with a transthoracic echocardiogram. He did have a transthoracic cardiogram on 12-22-2021.? The results are noted below.? In brief it appears that he had a moderately dilated left ventricle with moderate to severe global left ventricular systolic dysfunction with an estimated LVEF of 30% with mild left atrial enlargement and trivial MR/TR.? He had a bubble contrast study which was considered negative for right to left interatrial shunt.? There was no evidence of decreased diastolic compliance. He states he does have a history of hyperlipidemia, hypertension, diabetes mellitus.? He notes that for a long period of time as he was without third-constitution party pair health insurance he was unable to afford medications to control his medical conditions.? He states as he has been back on medications his other medical conditions have come under better control. He denies at the present time any ongoing evidence of classic angina pectoris at rest or with exertion.? He does not complain of shortness of breath or dyspnea with exertion.? He denies any obvious symptoms of acute CHF such as orthopnea or PND or peripheral pitting edema.? There has been no near-syncope or syncope. He did have an ECG performed at [facility] on 06-27-2016.? At that time he had sinus tachycardia with ST and T wave changes reported compatible with lateral myocardial ischemia. He had a repeat ECG in the office today.? He was noted to be in sinus rhythm with a nonspecific T wave abnormality. Intake Vital Signs ? 12/02/2110:12 01/01/2215:26 01/01/2215:28 Height 5 ft 10 in 5 ft 10 in 5 ft 8 in Weight: ? ? 304 lb 5 oz BMI ? ? 46.3 BP ? ? 132/88 H Blood Pressure Location ? ? Lt brachial Position ? ? Sitting Respiration ? ? 16 Pulse ? ? 76 Pulse Source ? ? 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 Accompanied by: Self Allergies No Known Allergies Allergy (Verified 01/01/22 15:29) Medications albuterol sulfate 90 mcg/actuation aerosol inhaler (ProAir HFA) 2 puff inhalation Q4H PRN PRN Asthma 03/18/16 [History Confirmed 01/01/22] metformin 500 mg tablet,extended release 24 hr 1,000 mg PO BID DIABETES 03/18/16 [History Confirmed 01/01/22] budesonide-formoterol HFA 160 mcg-4.5 mcg/actuation aerosol inhaler (Symbicort) 2 puff inhalation BID ##1 06/28/16 [Rx Confirmed 01/01/22] albuterol sulfate 2.5 mg/3 mL (0.083 %) solution for nebulization 2.5 mg inhalation DAILY PRN 12/29/21 [History Confirmed 01/01/22] empagliflozin 25 mg tablet (Jardiance) 25 mg PO DAILY 12/29/21 [History Confirmed 01/01/22] insulin glargine 100 unit/mL (3 mL) subcutaneous pen (Basaglar KwikPen U-100 Insulin) 40 unit subcut QAM 12/29/21 [History Confirmed 01/01/22] lisinopril 5 mg tablet 5 mg PO DAILY 12/29/21 [History Confirmed 01/01/22] rosuvastatin 5 mg tablet 5 mg PO DAILY 12/29/21 [History Confirmed 01/01/22] aspirin 81 mg tablet,delayed release 81 mg PO DAILY #1 TAB 01/01/22 [Rx Confirmed 01/01/22] carvedilol 3.125 mg tablet (Coreg) 3.125 mg PO BID #60 tabs 01/01/22 [Rx Confirmed 01/01/22] PFSH Medical History? Cardiac murmur Essential hypertension Exposure to confirmed case of COVID-19 [place] Late effect of certain other external causes Type 2 diabetes mellitus Surgical History? History of knee surgery Family History? Grandfather CAD (coronary artery disease)Mother Heart disease Social History? Smoking Status:? Former smoker alcohol intake:? current details:? occasional substance use type:? does not use caffeine:? Yes Type: coffee Number of servings: 1 ROS Const Const: Negative for fatigue, weakness, body ache, fever(s), headache(s), chills, frequent falls, night sweats, daytime sleepiness, difficulty sleeping, excessive sweating, weight gain, weight loss, increased appetite, poor appetite, anorexia or other Eyes Eyes: Negative for blurry vision or double vision ENT ENT: Negative for headache(s), dizziness or balance problems Cardio Chest Pain: No Palpitations: No Edema: None Muscle aches with walking: None Resp Respiratory: Negative for SOB with activity, SOB at rest, SOB orthopnea\SOB lying down, Cough, Coughing up blood/hemoptysis, chest congestion, pain on inspiration, snoring, stridor, wheezing, crackles, paroxysmal nocturnal dyspnea or other Musc Musc: Negative for muscle aches/ myalgia, muscle weakness, joint pain or balance problems Neuro Neuro: Negative for dizziness, lightheadedness, near syncope, syncope, orthostatic symptoms, frequent falls, headache(s), weakness, confusion, memory loss, restless legs, blurry vision, double vision, vertigo, seizures, lack of coordination or other Endo Endo: Negative for fatigue or excessive sweating Cardiology Exam Const Appearance: cooperative, healthy appearing, comfortable, no acute distress, well developed and well groomed Nutritional Appearance: average body habitus and well nourished Orientation: alert, awake and oriented x3 Head Head: normal to inspection, normocephalic and atraumatic Ears: hearing grossly normal bilaterally Nose: external nose normal Face and Sinus: face symmetric Eyes Eyelids: eyelids normal Conjunctivae: conjunctivae normal Pupils: PERRL EOM: EOM intact bilaterally Neck Neck: normal visual inspection and full ROM Carotids: normal carotid upstroke Chest Chest inspection: normal inspection of the chest, symmetric chest movement and normal respiratory effort Auscultation: Bilateral: Clear to Auscultation Cardio Palpation: normal PMI Rate: regular rate Rhythm: regular rhythm Heart sounds: S1 normal, S2 normal and murmur Murmur: Grade 1/6, soft, mid systolic and LLSB GI GI: normal to inspection, soft and bowel sounds present Neuro General: patient alert, patient awake, patient oriented x3, gait normal and mov es all extremities Skin Skin: no rashes or lesions noted Extremities Pulses: Normal: Right Radial Pulse and Left Radial Pulse Lower Extremity Edema: None: Bilateral Psych Psychological: normal affect Supplemental Info Supplemental Information Labs: ?? ? LDL Cholesterol 88 mg/dL (0-130) ?? ? HDL Cholesterol 42 mg/dL (40-) ?? ? Triglycerides 146 mg/dL (-199) ?? ? VLDL Cholesterol 29 mg/dL (5-40) Diagnostics: A ?? ? Electrocardiogram ? Echocardiogram ? Chest X-Ray ? Pulmonary: ?? ? No Data to Display Assessment and Plan Assessment and Plan (1) Cardiomyopathy: ?Status:?Acute ?Plan: He appears to have objective findings compatible with an underlying cardiomyopathy. The etiology is unclear. He does not describe any recent illnesses. There would be concern, based upon his period of time where he had lack of control of his medical conditions, as to whether or not he could have developed premature CAD to contribute to these findings. There is also concern as to whether or not he may have a diabetic type related cardiomyopathy. At the present time he will initiate medical therapy with aspirin 81 mg p.o. daily. He will also initiate medical therapy with carvedilol/Coreg 3.125 mg p.o. twice daily. He will continue his MOHAN inhibitor therapy and his lipid-lowering therapy. Over time he may need additional medical management such as diuretic therapy with Aldactone/spironolactone, potential alteration of his MOHAN inhibitor to an alternative agent such as Entresto, as well as the potential addition of an SGLT2 inhibitor. In the interim it was felt reasonable based upon his young age, his risk factors, and his echocardiographic findings, that he undergo further definitive evaluation for the possibility of premature CAD in the cardiac catheterization laboratory.? A cardiac catheterization procedure and risk were discussed with him.? He did view the precardiac catheterization video.? He agreed to proceed in this manner. His findings will dictate as to how to proceed further with evaluation and care. (2) Cardiac murmur: ?Status:?Acute ?Plan: The patient does have a soft cardiac murmur. His echocardiogram does not suggest any hemodynamically significant valvular related issues. (3) HLD (hyperlipidemia): ?Status:?Acute ?Plan: The patient will continue his lipid-lowering therapy. (4) Essential hypertension: ?Status:?Acute ?Plan: The patient has a history of hypertension. He will continue his current therapy. (5) Type 2 diabetes mellitus: ?Status:?Acute ?Plan: The patient has history of diabetes mellitus. He states he has been diabetic for a few years. He will continue medical therapy. ? ? ? Orders: Orders 12 Lead EKG performed by [facility] Today I10 - Essential (primary) hypertension, R01.1 - Cardiac murmur, unspecified ? Left Heart Cath/COR/LV Percut Today E11.9 - Type 2 diabetes mellitus without complications, I10 - Essential (primary) hypertension, I42.9 - Cardiomyopathy, unspecified, R01.1 - Cardiac murmur, unspecified ? Basic Metabolic Profile (BMP) Today E11.9 - Type 2 diabetes mellitus without complications, I10 - Essential (primary) hypertension, I42.9 - Cardiomyopathy, unspecified, R01.1 - Cardiac murmur, unspecified ? Partial Thromboplast Time TodayK E11.9 - Type 2 diabetes mellitus without complications, I10 - Essential (primary) hypertension, I42.9 - Cardiomyopathy, unspecified, R01.1 - Cardiac murmur, unspecified ? Prothrombin Time w/INR Today E11.9 - Type 2 diabetes mellitus without complications, I10 - Essential (primary) hypertension, I42.9 - Cardiomyopathy, unspecified, R01.1 - Cardiac murmur, unspecified ? CBC W/Diff, Automated Today E11.9 - Type 2 diabetes mellitus without complications, I10 - Essential (primary) hypertension, I42.9 - Cardiomyopathy, unspecified, R01.1 - Cardiac murmur, unspecified ? Chest PA and Lateral Today E11.9 - Type 2 diabetes mellitus without complications, I10 - Essential (primary) hypertension, I42.9 - Cardiomyopathy, unspecified, R01.1 - Cardiac murmur, unspecified ? Medications: New aspirin 81 mg? PO DAILY 1 TAB 0RF ? ? carvedilol (Coreg) ?? must administer with a meal/food 3.125 mg? PO BID 60 tabs 3RF ? ? Plan Details Additional Comments: Thank you for allowing me to participate in the care of your patient.? Please don't hesitate to call if any issues arise. This note was generated using a voice recognition system and there may be incorrect words, spelling or punctuation that were not noted when reviewing the office note prior to saving. Follow Up: ? ? 6 Weeks (PFM ) COVID (Procedure Consent) Procedure Criteria Procedure Criteria: Yes Elective The surgeon/proceduralist and patient have discussed in detail the risk of exposure to and/or potential harm posed by the COVID-19 virus with having a surgery/procedure at this time versus the risk of? delaying the surgery/procedure. It is not possible to know either the risk of delaying the surgery or procedure or chance of getting an infection with perfect accuracy, but a joint decision was made between the patient and the surgeon/proceduralist ?to proceed at this time with the scheduled surgery/procedure as indicated on the consent form. Coding Level of Care Code Off vis,new,level 5 Diagnoses Cardiomyopathy? I42.9 Cardiac murmur? R01.1 HLD (hyperlipidemia)? E78.5 Essential hypertension? I10 Type 2 diabetes mellitus? E11.9 Coding Level of Care Code Off vis,new,level 5 Diagnoses Cardiomyopathy? I42.9 Cardiac murmur? R01.1 HLD (hyperlipidemia)? E78.5 Essential hypertension? I10 Type 2 diabetes mellitus? E11.9 Carlos Turner MD CC:? Dr. Carlos Castro MD ~ Assessment & Plan Addt'l Comments I have examined the patient and the H&P has been reviewed. There are no clinical changes since date of exam. This note was generated using a voice recognition system and there may be incorrect words, spelling or punctuation that were not noted when reviewing the office note prior to saving.
[2022-01-18 12:53] VITALS: BMI 46.5
--- NOTE | 2022-01-19 09:41 | CL.D_ITS ---
Patient Name: CARLEY MAYA Study Date: 01/19/2022 Performing: Carlos Turner MD Ht: 68 inches 172.72 cm : 1995 Wt: 306 lbs 138.8 kg Age: 26 Gender: male BSA: 2.45 PROCEDURE(S) PERFORMED DC02-(48869)C/COR CLINICAL PROFILE AND INDICATIONS Indications: Cardiomyopathy Heart Failure: None Stress/Imaging Stress/Image Study Performed: No Angina Classification Anginal Classification w/in 2 Weeks: No symptoms CAD Presentations: Other: cardiomyopathy CONCLUSIONS Elevated Left Ventricular End Diastolic Pressure Normal coronary arteries RECOMMENDATIONS Risk factor modification Medical therapy DESCRIPTION OF PROCEDURE The patient arrived to the procedure lab. The risks and benefits of the procedure as well as a full description of our services here and current unavailability of surgical backup were fully explained to the patient and/or their significant other prior to the catheterization. The Timeout was completed, verifying the correct patient and procedure. The patient's procedural site was prepped and draped in the usual fashion. Local anesthetic was given subcutaneously to right radial region with Lidocaine 2%. Using a modified Seldinger technique, arterial access was obtained via the right radial artery, a 6Fr sheath was inserted. Left Coronary Artery selective angiography was performed in multiple views using a 5 Fr. JL3.5 catheter. Right Coronary Artery selective angiography was then performed in multiple views using a 5 Fr. JR 4 catheter. LV to AO pullback pressures were then recorded.The arterial sheath was pulled and a TR Band was applied for hemostasis CORONARY ANGIOGRAPHY DOMINANCE: Co- Dominant LEFT HEART ASSESSMENT Left Ventricular Ejection Fraction: Not assessed Elevated Left Ventricular End Diastolic Pressure LVEDP: 24 mmHg LEFT MAIN: Angiographically normal LEFT ANTERIOR DESCENDING ARTERY: Angiographically normal CIRCUMFLEX ARTERY: Angiographically normal RIGHT CORONARY ARTERY: Angiographically normal COMPLICATIONS No Complications PROCEDURE MEDICATIONS Versed 1 mg IV Fentanyl 50 mcg IV Oxygen: 2 L/min via nasal cannula Heparin given IA 01/19/2022 09:06:44 Verapamil 2.5mg, Ntg 200mcgs, 2000 units of Heparin given IA 01/19/2022 09:06:44 SUMMARY OF HEMODYNAMIC DATA Time AIR REST ECG 07:30:32 AO 150/115 (130) SA 09:08:00 LV 148/7, 26 09:26:14 LV 146/6, 24 09:26:21 LVp 149/7, 22 09:26:27 AOp 148/95 (118) 09:26:32 Signed By Carlos Turner MD On 01/19/2022 09:40:59 Carlos Turner MD
== END 2022-01-19 11:26 | disposition home or self-care (01) ==
LOC: CLSP 07:12
PROVIDERS: PCP Family Medicine; Referring Provider Internal Medicine Cardiovascular Disease; Visit Provider Internal Medicine Cardiovascular Disease
DX: I42.9 Cardiomyopathy, unspecified (principal); E11.9 Type 2 diabetes mellitus without complications; Z79.4 Long term (current) use of insulin; R01.1 Cardiac murmur, unspecified; E78.5 Hyperlipidemia, unspecified; I10 Essential (primary) hypertension; Z79.899 Other long term (current) drug therapy; Z79.84 Long term (current) use of oral hypoglycemic drugs; Z87.891 Personal history of nicotine dependence
CPT/HCPCS: 93454; 99152; 99153; C1769; C1894; Q9967

== ENCOUNTER → 2022-05-26 | Outpatient (CLI) | payer MEDICAID, SELFPAY ==
[2022-05-26 16:03] LABS: Anion Gap 8 (5-15); BUN 18 mg/dL (7-18); BUN/Creat Ratio 20.2 RATIO (10-20); Calcium,Total 9.6 mg/dL (8.5-10.1); Chloride 105 mmol/L (98-107); Cholesterol 171 mg/dL (200); Creatinine, Serum 0.89 mg/dL (0.70-1.30); EST Glomerular Filtration Rate 107 mL/min (>60); Est Glom Filt Rate - Afr Amer 130 mL/min (>60); Glucose 159 mg/dL (74-106); High Density Lipoprotein 36 mg/dL; Potassium 4.4 mmol/L (3.5-5.1); Sodium Level 142 mmol/L (136-145); Triglycerides 320 mg/dL; Very Low Density Lipoprotein 64 mg/dL (5-40)
== END | disposition home or self-care (01) ==
LOC: MFPLAB 11:56
PROVIDERS: PCP Family Medicine; Referring Provider Family Medicine; Visit Provider Family Medicine
DX: E11.9 Type 2 diabetes mellitus without complications (principal)
CPT/HCPCS: 36415; 80048; 80061

== ENCOUNTER → 2022-09-27 | Outpatient (CLI) | payer MEDICAID, SELFPAY ==
--- NOTE | 2022-09-27 13:49 | ECHOL_ITS ---
Reason For Study: CHF Procedure This was a 2D Doppler, Color Flow transthoracic echocardiogram. Exam performed in department. Left Ventricle Normal LV size. Mild global left ventricular systolic dysfunction. The left ventricular ejection fraction is 50 %. No regional wall motion abnormalities noted. Right Ventricle Normal RV size. Normal systolic function. Atria Normal left atrium. Normal right atrium. Mitral Valve Mitral valve not well visualized. Tricuspid Valve Normal tricuspid valve. Aortic Valve The aortic valve is not well visualized. Pulmonic Valve The pulmonic valve is not well visualized. Great Vessels Normal aortic root. Pericardium/Pleural No pericardial effusion. MMode/2D Measurements & Calculations LVIDd: 6.8 cm IVSd: 0.92 cm Ao root diam: 3.4 cm LVIDs: 5.3 cm LVPWd: 1.4 cm FS: 22.6 % LVAd ap4: 35.1 cm2 LVAd ap2: 47.1 cm2 SV(MOD-sp4): 62.0 ml LVLd ap4: 8.4 cm LVLd ap2: 9.3 cm EDV(MOD-sp4): 121.5 ml EDV(MOD-sp2): 204.6 ml EDV(sp4-el): 123.9 ml EDV(sp2-el): 202.6 ml LVAs ap4: 22.8 cm2 LVAs ap2: 31.3 cm2 LVLs ap4: 7.2 cm LVLs ap2: 7.6 cm ESV(MOD-sp4): 59.5 ml ESV(MOD-sp2): 110.6 ml ESV(sp4-el): 61.0 ml ESV(sp2-el): 110.3 ml EF(MOD-sp4): 51.0 % EF(MOD-sp2): 46.0 % EF(sp4-el): 50.8 % SV(MOD-sp2): 94.0 ml SV(sp4-el): 63.0 ml LA dimension(2D): 3.5 cm ECHO/Echo, Limited Study Interpretation Summary Normal LV size. Mild global left ventricular systolic dysfunction. The left ventricular ejection fraction is 50 %. The global longitudinal strain = -16% (abnormal). Compared to previous study, t he left ventricular systolic function has improved.. The global longitudinal strain has improved. Ordering Physician: Yosi Garcia Referring Physician: Yosi Garcia Performed By: Mona Guillen RCS
== END | disposition home or self-care (01) ==
LOC: CVS 13:49
PROVIDERS: PCP Family Medicine; Referring Provider Nurse Practitioner Family; Visit Provider Nurse Practitioner Family
DX: I42.9 Cardiomyopathy, unspecified (principal); R01.1 Cardiac murmur, unspecified
CPT/HCPCS: 93308

== ENCOUNTER → 2022-12-07 | Outpatient (CLI) | payer MEDICAID, SELFPAY ==
--- NOTE | 2022-12-07 15:50 | RAD_ITS ---
STUDY: X-RAY CHEST REASON FOR EXAM: Male, 27 years old. POSITIVE TB TEST TECHNIQUE: PA and lateral COMPARISON: January 01, 2022 FINDINGS: The lungs are clear and expanded. There is no demonstrated pleural abnormality. Normal size heart. Normal mediastinum and jeremy. Normal visualized pulmonary arteries. Normal visualized aortic arch and descending thoracic aorta. Normal visualized thoracic spine. Normal visualized ribs, clavicles, and shoulders. There is no demonstrated abnormality of the visualized soft tissue structures of the upper abdomen. Previously noted right upper lobe infiltrate has resolved RAD/Chest PA and Lateral IMPRESSION: Normal x-ray examination of the chest. No definitive evidence for active tuberculosis Electronically Signed: Junior Samuel MD at 19:26 EDT ,
== END | disposition home or self-care (01) ==
LOC: MTRAD 15:43
PROVIDERS: PCP Family Medicine; Referring Provider Family Medicine; Visit Provider Family Medicine
DX: R76.11 Nonspecific reaction to tuberculin skin test without active tuberculosis (principal)
CPT/HCPCS: 71046

== ENCOUNTER → 2023-02-08 | Outpatient (CLI) | payer MEDICAID, SELFPAY ==
[2023-02-08 17:55] LABS: Microalbumin:Creatinine Ratio 27.5 mg/g CRE (<30 mg/g CRE)
[2023-02-08 18:06] LABS: Anion Gap 4 (5-15); BUN 17 mg/dL (7-18); BUN/Creat Ratio 19.5 RATIO (10-20); Calcium,Total 9.1 mg/dL (8.5-10.1); Chloride 105 mmol/L (98-107); Cholesterol 146 mg/dL (200); Creatinine, Serum 0.87 mg/dL (0.70-1.30); EST Glomerular Filtration Rate 110 mL/min (>60); Est Glom Filt Rate - Afr Amer 133 mL/min (>60); Glucose 87 mg/dL (74-106); High Density Lipoprotein 42 mg/dL; Potassium 4.3 mmol/L (3.5-5.1); Sodium Level 136 mmol/L (136-145); Triglycerides 122 mg/dL; Very Low Density Lipoprotein 24 mg/dL (5-40)
== END | disposition home or self-care (01) ==
LOC: MFPLAB 14:42
PROVIDERS: PCP Family Medicine; Visit Provider Family Medicine
DX: E11.65 Type 2 diabetes mellitus with hyperglycemia (principal)
CPT/HCPCS: 36415; 80048; 80061; 82043; 82570